=== PATIENT | female | born 1960 | race Caucasian/White ===

== ENCOUNTER 2021-03-03 13:27 | Emergency (ER) | payer MEDICARE, MEDICAID ==
[2021-03-03 14:10] LABS: #Eosinphils 0.1 10x3/uL (0.0-0.5); #Monocytes 0.6 10x3/uL (0.0-1.1); #Neutrophils 3.6 10x3/uL (1.5-8.4); %Basophils 0.4 % (0.0-2.0); %Eosinophils 0.9 % (0.0-6.0); %Lymphocytes 19.2 % (18.0-47.0); %Monocytes 11.7 % (0.0-10.0); %Neutrophils 67.6 % (40.0-75.0); Hemoglobin 11.5 g/dL (12.0-15.5); Mean Corpuscular Hemoglobin 30.9 pg (27.0-33.0); Mean Corpuscular Volume 96.5 fl (81.6-98.3); Mean Platelet Volume 10.3 fl (7.4-10.4); Platelet Count 156 10x3/uL (150-450); RBC Distribution Width 12.6 % (11.5-14.5); Red Blood Cell (RBC) Count 3.72 10x6/uL (3.90-5.03); White Blood Cell (WBC) Count 5.3 10x3/uL (3.5-10.5)
[2021-03-03 14:25] LABS: ALT (SGPT) 18 U/L (8-55); AST (SGOT) 14 U/L (5-34); Albumin 3.8 g/dL (3.5-5.0); Alkaline Phosphatase 107 U/L (40-110); Anion Gap 12 mmol/L (10-20); BUN (Urea Nitrogen) 18 mg/dL (9.8-20.1); Bilirubin, Total 0.3 mg/dL (0.2-1.2); Calc. Creatinine Clearance 0 mL/min (70-130); Calcium 8.7 mg/dL (7.8-10.44); Carbon Dioxide 29 mmol/L (22-29); Chloride 105 mmol/L (98-107); Glucose 141 mg/dL (70-105); Potassium 3.4 mmol/L (3.5-5.1); Protein, Total 5.8 g/dL (6.0-8.3); Sodium 143 mmol/L (136-145)
[2021-03-03 19:18] LABS: Troponin I 0.012 ng/mL (< 0.028)
== END 2021-03-03 20:23 | disposition short-term general hospital (02) ==
LOC: CSHERS 13:27
DX: I13.10 Hypertensive heart and chronic kidney disease without heart failure, with stage 1 through stage 4 chronic kidney disease, or unspecified chronic kidney disease (principal); N18.9 Chronic kidney disease, unspecified; I50.9 Heart failure, unspecified; R07.9 Chest pain, unspecified; E78.5 Hyperlipidemia, unspecified; J44.9 Chronic obstructive pulmonary disease, unspecified; F17.200 Nicotine dependence, unspecified, uncomplicated
CPT/HCPCS: 36415; 71045; 80053; 83880; 84484; 85025; 93005

== ENCOUNTER 2021-11-11 11:15 | Outpatient (CLI) | payer MEDICARE, MEDICAID | END 2021-11-11 11:16 | disposition home or self-care (01) | LOC: CSHMAMMO 11:15 | PROVIDERS: ATTEND Family Medicine | DX: Z12.31 Encounter for screening mammogram for malignant neoplasm of breast (principal); Z80.3 Family history of malignant neoplasm of breast | CPT/HCPCS: 77063; 77067 ==

== ENCOUNTER 2022-11-25 09:33 | Outpatient (CLI) | payer MEDICARE, MEDICAID | END 2022-11-25 09:34 | disposition home or self-care (01) | LOC: CSHMAMMO 09:33 | PROVIDERS: ATTEND Family Medicine | DX: Z12.31 Encounter for screening mammogram for malignant neoplasm of breast (principal); Z80.3 Family history of malignant neoplasm of breast | CPT/HCPCS: 77063; 77067 ==

== ENCOUNTER 2024-01-07 09:44 | Outpatient (CLI) | payer MEDICARE, MEDICAID | END 2024-01-07 09:45 | disposition home or self-care (01) | LOC: CSHMAMMO 09:44 | PROVIDERS: ATTEND Family Medicine | DX: Z12.31 Encounter for screening mammogram for malignant neoplasm of breast (principal); Z80.3 Family history of malignant neoplasm of breast | CPT/HCPCS: 77063; 77067 ==

== ENCOUNTER 2024-11-10 08:45 | Outpatient (CLI) | payer OTHER, MEDICAID | END 2024-11-10 08:46 | disposition home or self-care (01) | LOC: CSHCT 08:45 | PROVIDERS: ATTEND Family Medicine | DX: Z12.2 Encounter for screening for malignant neoplasm of respiratory organs (principal); F17.210 Nicotine dependence, cigarettes, uncomplicated | CPT/HCPCS: 71271 ==

== ENCOUNTER 2025-02-14 09:54 | Outpatient (CLI) | payer OTHER, MEDICAID | END 2025-02-14 09:55 | disposition home or self-care (01) | LOC: CSHMAMMO 09:54 | PROVIDERS: ATTEND Family Medicine | DX: Z12.31 Encounter for screening mammogram for malignant neoplasm of breast (principal); Z80.3 Family history of malignant neoplasm of breast | CPT/HCPCS: 77063; 77067 ==